=== PATIENT | male | born 1980 | race American Indian/Alaskan Native ===

== ENCOUNTER 2020-07-14 01:25 | Emergency (ER) | payer MEDICAID ==
[2020-07-14 01:58] LABS: Basophils % (Auto) 0.7 % (0.0-1.8); Eosinophils % (Auto) 0.6 % (0.0-4.3); Hematocrit 38.9 % (35.5-45.6); Hemoglobin 13.3 gm/dl (11.8-15.2); Lymphocytes # (Auto) 2.2 K/mm3 (1.2-5.4); Lymphocytes % (Auto) 32.7 % (13.4-35.0); Mean Corpuscular HGB Conc 34 % (32-34); Mean Corpuscular Volume 87 fl (84-94); Monocytes # (Auto) 0.4 K/mm3 (0.0-0.8); Monocytes % (Auto) 5.5 % (0.0-7.3); Platelet Count 146 K/mm3 (140-440); Red Blood Count 4.47 M/mm3 (3.65-5.03)
[2020-07-14 02:10] LABS: BUN/Creatinine Ratio 18; Blood Urea Nitrogen 16 mg/dL (9-20); Calcium 9.4 mg/dL (8.4-10.2); Hemolysis Index 3
[2020-07-14 02:15] LABS: Bacteria,Urine 1+ /HPF (Negative); Bilirubin,Urine NEG (Negative); Blood,Urine NEG (Negative); Color,Urine Amber (Yellow); Mucus,Urine 3+ /HPF
--- NOTE | 2020-07-14 02:18 | Emergency Department Report ---
ED General Adult HPI - General Chief complaint: Psych Stated complaint: PSYCH EVAL PUI?: No Time Seen by Provider: 07/14/20 02:05 Source: patient, EMS, RN notes reviewed Mode of arrival: Ambulatory Limitations: Other (Bizarre behavior and affect, not forthcoming) - History of Present Illness Initial comments: The patient was evaluated in the emergency department for symptoms described in the history of present illness. He/she was evaluated in the context of the global COVID-19 pandemic, which necessitated consideration that the patient might be at risk for infection with the virus that causes COVID-19. Institutional protocols and algorithms that pertain to the evaluation of patients at risk for COVID-19 are in a state of rapid change based on information released by regulatory bodies including the CDC and federal and state organizations. These policies and algorithms were followed during the patient's care in the emergency department. Please note that these policies, procedures and recommendations changed on a rapid basis. The patient is a 39-year-old gentleman, who is not known to myself previously, who was brought to the hospital today with request for psychiatric evaluation. The patient speaks very softly, and is very withdrawn. He indicated that he would like a psychiatric evaluation. He indicates he is not having physical pain. He is hesitant when asked about questions regarding homicidality and suicidality, but ultimately reports that he is not homicidal suicidal. He denies urinary symptoms, testicular pain, as well as Covid symptomatology. He is not sure what medications he takes, if any. Apparently, he was at a gas station, and police/911 were activated for unclear reasons. Patient is not accompanied by friends or family at this time for collateral information. The patient himself is disorganized, and has difficulty describing the qualitative nature of his symptoms, exacerbating factors, relieving factors, or aggravating factors. He is also asking to eat. -: This evening Quality: other Consistency: other Improves with: other Worsens with: other Associated Symptoms: other - Related Data Home Medications Medication Instructions Recorded Confirmed Last Taken No Known Home Medications [No 07/20/13 07/20/13 Unknown Reported Home Medications] Allergies Allergy/AdvReac Type Severity Reaction Status Date / Time No Known Allergies Allergy Unverified 07/20/13 10:57 ED Review of Systems ROS: Stated complaint: PSYCH EVAL Other details as noted in HPI Constitutional: denies: fever Cardiovascular: denies: chest pain Gastrointestinal: denies: abdominal pain Genitourinary: denies: urgency, dysuria, testicular pain Musculoskeletal: denies: back pain Neurological: denies: weakness Psychiatric: as per HPI ED Past Medical Hx - Past Medical History Previous Medical History?: Yes Hx Hypertension: Yes Hx Psychiatric Treatment: Yes - Surgical History Additional Surgical History: UTO - Social History Smoking Status: Unknown if ever smoked - Medications Home Medications: Home Medications Medication Instructions Recorded Confirmed Last Taken Type No Known Home Medications [No 07/20/13 07/20/13 Unknown History Reported Home Medications] ED Physical Exam - General Limitations: Other (Patient is a poor historian.) General appearance: in no apparent distress - Head Head exam: Present: atraumatic, normocephalic - Eye Eye exam: Present: normal appearance, EOMI. Absent: nystagmus - ENT ENT exam: Present: normal exam, normal orophraynx, mucous membranes moist, norm al external ear exam - Neck Neck exam: Present: normal inspection, full ROM. Absent: tenderness, meningismus - Respiratory Respiratory exam: Present: normal lung sounds bilaterally. Absent: respiratory distress, wheezes, rales, rhonchi, stridor, decreased breath sounds - Cardiovascular Cardiovascular Exam: Present: normal rhythm, bradycardia, normal heart sounds. Absent: tachycardia, irregular rhythm, systolic murmur, diastolic murmur, rubs, gallop - GI/Abdominal GI/Abdominal exam: Present: soft. Absent: distended, tenderness, guarding, rebound, rigid, pulsatile mass - Rectal Rectal exam: Present: deferred - Extremities Exam Extremities exam: Present: normal inspection, full ROM, other (2+ pulses noted in the bilateral upper and lower extremities. There is no palpable cord. negative Homans sign. Muscular compartments are soft. The pelvis is stable.). Absent: pedal edema, calf tenderness - Back Exam Back exam: Present: normal inspection, full ROM. Absent: tenderness, CVA tenderness (R), CVA tenderness (L), paraspinal tenderness, vertebral tenderness - Neurological Exam Neurological exam: Present: alert, normal gait, other (No facial droop. Tongue midline. Extraocular movements intact bilaterally. Facial sensation intact to light touch in V1, V2, V3 distribution bilaterally. 5 and a 5 strength in 4 extremities. Sensation intact to light touch in 4 extremities.). Absent: motor sensory deficit - Psychiatric Psychiatric exam: Present: flat affect - Skin Skin exam: Present: warm, dry, intact, normal color. Absent: rash ED Course Vital Signs 07/14/20 01:45 Temperature 97.9 F Pulse Rate 59 L Respiratory 18 Rate Blood Pressure 110/50 [Left] O2 Sat by Pulse 100 Oximetry ED Medical Decision Making - Lab Data Result diagrams: 07/14/20 01:35 07/14/20 01:35 Vital Signs 07/14/20 01:45 Temperature 97.9 F Pulse Rate 59 L Respiratory 18 Rate Blood Pressure 110/50 [Left] O2 Sat by Pulse 100 Oximetry Lab Results 07/14/20 07/14/20 07/14/20 Range/Units 01:35 01:35 01:35 WBC (4.5-11.0) K/mm3 RBC (3.65-5.03) M/mm3 Hgb (11.8-15.2) gm/dl Hct (35.5-45.6) % MCV (84-94) fl MCH (28-32) pg MCHC (32-34) % RDW (13.2-15.2) % Plt Count (140-440) K/mm3 Lymph % (Auto) (13.4-35.0) % [place] % (Auto) (0.0-7.3) % Eos % (Auto) (0.0-4.3) % Baso % (Auto) (0.0-1.8) % Lymph # (Auto) (1.2-5.4) K/mm3 [place] # (Auto) (0.0-0.8) K/mm3 Eos # (Auto) (0.0-0.4) K/mm3 Baso # (Auto) (0.0-0.1) K/mm3 Seg Neutrophils % (40.0-70.0) % Seg Neutrophils # (1.8-7.7) K/mm3 Sodium 141 (137-145) mmol/L Potassium 3.9 (3.6-5.0) mmol/L Chloride 103.4 (98-107) mmol/L Carbon Dioxide 29 (22-30) mmol/L Anion Gap 13 mmol/L BUN 16 (9-20) mg/dL Creatinine 0.9 (0.8-1.3) mg/dL Estimated GFR > 60 ml/min BUN/Creatinine Ratio 18 % Glucose 102 H (75-100) mg/dL Calcium 9.4 (8.4-10.2) mg/dL Magnesium (1.7-2.3) mg/dL Total Creatine Kinase (55-170) units/L Urine Color (Yellow) Urine Turbidity (Clear) Urine pH (5.0-7.0) Ur Specific [place] (1.003-1.030) Urine Protein (Negative) mg/dL Urine Glucose (UA) (Negative) mg/dL Urine Ketones (Negative) mg/dL Urine Blood (Negative) Urine Nitrite (Negative) Urine Bilirubin (Negative) Urine Urobilinogen (<2.0) mg/dL Ur Leukocyte Esterase (Negative) Urine WBC (Auto) (0.0-6.0) /HPF Urine RBC (Auto) (0.0-6.0) /HPF U Epithel Cells (Auto) (0-13.0) /HPF Urine Bacteria (Auto) (Negative) /HPF Urine Mucus /HPF Salicylates < 0.3 L (2.8-20.0) mg/dL Urine Opiates Screen Urine Methadone Screen Acetaminophen 5.0 L (10.0-30.0) ug/mL Ur Barbiturates Screen Ur Phencyclidine Scrn Ur Amphetamines Screen U Benzodiazepines Scrn Urine Cocaine Screen U Marijuana (THC) Screen Drugs of Abuse Note Plasma/Serum Alcohol (0-0.07) % 07/14/20 07/14/20 07/14/20 Range/Units 01:35 01:35 01:58 WBC 6.8 (4.5-11.0) K/mm3 RBC 4.47 (3.65-5.03) M/mm3 Hgb 13.3 (11.8-15.2) gm/dl Hct 38.9 (35.5-45.6) % MCV 87 (84-94) fl MCH 30 (28-32) pg MCHC 34 (32-34) % RDW 13.0 L (13.2-15.2) % Plt Count 146 (140-440) K/mm3 Lymph % (Auto) 32.7 (13.4-35.0) % [place] % (Auto) 5.5 (0.0-7.3) % Eos % (Auto) 0.6 (0.0-4.3) % Baso % (Auto) 0.7 (0.0-1.8) % Lymph # (Auto) 2.2 (1.2-5.4) K/mm3 [place] # (Auto) 0.4 (0.0-0.8) K/mm3 Eos # (Auto) 0.0 (0.0-0.4) K/mm3 Baso # (Auto) 0.0 (0.0-0.1) K/mm3 Seg Neutrophils % 60.5 (40.0-70.0) % Seg Neutrophils # 4.1 (1.8-7.7) K/mm3 Sodium (137-145) mmol/L Potassium (3.6-5.0) mmol/L Chloride (98-107) mmol/L Carbon Dioxide (22-30) mmol/L Anion Gap mmol/L BUN (9-20) mg/dL Creatinine (0.8-1.3) mg/dL Estimated GFR ml/min BUN/Creatinine Ratio % Glucose (75-100) mg/dL Calcium (8.4-10.2) mg/dL Magnesium (1.7-2.3) mg/dL Total Creatine Kinase (55-170) units/L Urine Color [place] (Yellow) Urine Turbidity Slightly-cloudy (Clear) Urine pH 5.0 (5.0-7.0) Ur Specific [place] 1.023 (1.003-1.030) Urine Protein 30 mg/dl (Negative) mg/dL Urine Glucose (UA) Neg (Negative) mg/dL Urine Ketones Neg (Negative) mg/dL Urine Blood Neg (Negative) Urine Nitrite Neg (Negative) Urine Bilirubin Neg (Negative) Urine Urobilinogen 4.0 (<2.0) mg/dL Ur Leukocyte Esterase Sm (Negative) Urine WBC (Auto) 30.0 H (0.0-6.0) /HPF Urine RBC (Auto) 6.0 (0.0-6.0) /HPF U Epithel Cells (Auto) 2.0 (0-13.0) /HPF Urine Bacteria (Auto) 1+ (Negative) /HPF Urine Mucus 3+ /HPF Salicylates (2.8-20.0) mg/dL Urine Opiates Screen Urine Methadone Screen Acetaminophen (10.0-30.0) ug/mL Ur Barbiturates Screen Ur Phencyclidine Scrn Ur Amphetamines Screen U Benzodiazepines Scrn Urine Cocaine Screen U Marijuana (THC) Screen Drugs of Abuse Note Plasma/Serum Alcohol < 0.01 (0-0.07) % 07/14/20 07/14/20 Range/Units 01:58 02:17 WBC (4.5-11.0) K/mm3 RBC (3.65-5.03) M/mm3 Hgb (11.8-15.2) gm/dl Hct (35.5-45.6) % MCV (84-94) fl MCH (28-32) pg MCHC (32-34) % RDW (13.2-15.2) % Plt Count (140-440) K/mm3 Lymph % (Auto) (13.4-35.0) % [place] % (Auto) (0.0-7.3) % Eos % (Auto) (0.0-4.3) % Baso % (Auto) (0.0-1.8) % Lymph # (Auto) (1.2-5.4) K/mm3 [place] # (Auto) (0.0-0.8) K/mm3 Eos # (Auto) (0.0-0.4) K/mm3 Baso # (Auto) (0.0-0.1) K/mm3 Seg Neutrophils % (40.0-70.0) % Seg Neutrophils # (1.8-7.7) K/mm3 Sodium (137-145) mmol/L Potassium (3.6-5.0) mmol/L Chloride (98-107) mmol/L Carbon Dioxide (22-30) mmol/L Anion Gap mmol/L BUN (9-20) mg/dL Creatinine (0.8-1.3) mg/dL Estimated GFR ml/min BUN/Creatinine Ratio % Glucose (75-100) mg/dL Calcium (8.4-10.2) mg/dL Magnesium 1.90 (1.7-2.3) mg/dL Total Creatine Kinase 248 H (55-170) units/L Urine Color (Yellow) Urine Turbidity (Clear) Urine pH (5.0-7.0) Ur Specific [place] (1.003-1.030) Urine Protein (Negative) mg/dL Urine Glucose (UA) (Negative) mg/dL Urine Ketones (Negative) mg/dL Urine Blood (Negative) Urine Nitrite (Negative) Urine Bilirubin (Negative) Urine Urobilinogen (<2.0) mg/dL Ur Leukocyte Esterase (Negative) Urine WBC (Auto) (0.0-6.0) /HPF Urine RBC (Auto) (0.0-6.0) /HPF U Epithel Cells (Auto) (0-13.0) /HPF Urine Bacteria (Auto) (Negative) /HPF Urine Mucus /HPF Salicylates (2.8-20.0) mg/dL Urine Opiates Screen Presumptive negative Urine Methadone Screen Presumptive negative Acetaminophen (10.0-30.0) ug/mL Ur Barbiturates Screen Presumptive negative Ur Phencyclidine Scrn Presumptive negative Ur Amphetamines Screen Presumptive negative U Benzodiazepines Scrn Presumptive negative Urine Cocaine Screen Presumptive negative U Marijuana (THC) Screen Presumptive negative Drugs of Abuse Note Disclamer Plasma/Serum Alcohol (0-0.07) % - Medical Decision Making Differential diagnosis, including but not limited to: Psychosis, disorganized behavior, encounter for behavioral health screening examination, medical screening examination Assessment and plan: 39-year-old gentleman, who was afebrile, with reassuring vital signs, with an unremarkable physical examination, who presents to the ER with a primary request for psychiatric evaluation. He is not violent, combative, homicidal or suicidal, but he is very soft-spoken, withdrawn, and not forthcoming. He does appear to be somewhat disorganized. Hold status ordered is placed, screening laboratory studies unremarkable, urinalysis reviewed and appreciated, patient states no urinary symptoms, symptoms, or recent sexual activity. Given young age, he will be covered empirically with ceftriaxone and doxycycline. Covid screen ordered in anticipation of possible psychiatric placement. At this point in time, patient does not appear to have an immediate medical contraindication to psychiatric consultation, placement, and evaluation. However, if the psychiatric team recommends that the patient would not benefit from 1013 hold or involuntary confinement/acute psychiatric hospitalization as an inpatient, from medical suitability standpoint, the patient is medically suitable for discharge with outpatient follow-up. Final disposition as per psychiatric recommendations. Critical care attestation.: If time is entered above; I have spent that time in minutes in the direct care of this critically ill patient, excluding procedure time. ED Disposition Clinical Impression: Medical clearance for psychiatric admission, Bacteriuria with pyuria, Encounter for behavioral health screening Disposition: [id number]/[id number] PSY HOSP/PSY UNIT Is pt being admited?: No Does the pt Need Aspirin: No Condition: Good
[2020-07-14 02:19] LABS: Amphetamine Screen,Urine PRESUMPTIVE NEGATIVE; Benzodiazepines Screen,Urine PRESUMPTIVE NEGATIVE; Cannabinoid Screen,Urine PRESUMPTIVE NEGATIVE; Cocaine Screen,Urine PRESUMPTIVE NEGATIVE; Methadone Screen,Urine PRESUMPTIVE NEGATIVE; Opiate Screen,Urine PRESUMPTIVE NEGATIVE
[2020-07-14] MEDS ORDERED: diphenhydrAMINE 25 MG CAP PO PRN (03:07)
[2020-07-14] MEDS ORDERED: LIDOCAINE-MPF (1%) 10 MG/1 ML VIAL 5 ML INFILTRATI ONE (03:07)
[2020-07-14] MEDS ORDERED: LORazepam 2 MG/ML VIAL IM PRN (03:07)
[2020-07-14] MEDS ORDERED: ACETAMINOPHEN 325 MG TAB PO PRN (03:07)
[2020-07-14] MEDS: DOXYCYCLINE 100 MG CAP PO SCH ×3 (04:03→22:20)
--- NOTE | 2020-07-14 09:37 | Consultation ---
History of Present Illness - Reason for Consult Consult date: 07/14/20 Reason for consult: psychosis - History of Present Psychiatric Illness Per ED Note: The patient is a 39-year-old gentleman, who is not known to myself previously, who was brought to the hospital today with request for psychiatric evaluation. The patient speaks very softly, and is very withdrawn. He indicated that he would like a psychiatric evaluation. He indicates he is not having physical pain. He is hesitant when asked about questions regarding homicidality and suicidality, but ultimately reports that he is not homicidal suicidal. He denies urinary symptoms, testicular pain, as well as Covid symptomatology. He is not sure what medications he takes, if any. Apparently, he was at a gas station, and police/911 were activated for unclear reasons. Patient is not accompanied by friends or family at this time for collateral information. The patient himself is disorganized, and has difficulty describing the qualitative nature of his symptoms, exacerbating factors, relieving factors, or aggravating factors. He is also asking to eat. 39y/o Juan Alberto Tillman was seen today, he is soft spoken, mumbling, and difficulty to follow. The patient had to be asked his name several times, in which he still could not give me his last name. His thoughts are disorganized. He does not answer any question directly. He only mumbles and rambles. PAST PSYCHIATRIC HISTORY Unable to obtain PAST MEDICAL HISTORY: None reported Family Psychiatric History: None reported or documented SOCIAL HISTORY Unable to obtain REVIEW OF SYSTEMS Unable to obtain MENTAL STATUS EXAMINATION General Appearance and Behavior: Age appropriate, not wearing appropriate clothes, poor eye contact Cooperation: Unengaged Psychomotor Behavior: Psychomotor normal Mood: Affect and affective range: Restricted Thought Process: illogical, impaired Thought Content: Speech: low tone, mumbling, nonsensical Suicidal Ideation: Homicidal Ideation: Hallucinations: Delusions: Insight and Judgment: Poor insight and judgment Memory: Poor Attention: Divided attention impaired Orientation: Assessment: Acute Psychosis Treatment Plan 1013 Start risperidone 0.25mg po BID Start Trazodone 50mg po qhs Sitter: Defer to priamary Medical: Per primary Disposition: Recommend acute psychiatric inpatient Will follow. Thank you Case discussed with Dr. Nayak Medications and Allergies Allergies Allergy/AdvReac Type Severity Reaction Status Date / Time No Known Allergies Allergy Unverified 07/20/13 10:57 Home Medications Medication Instructions Recorded Confirmed Last Taken Type No Known Home Medications [No 07/20/13 07/20/13 Unknown History Reported Home Medications] Active Meds: Active Medications Acetaminophen (Acetaminophen 325 Mg Tab) 650 mg PO Q6HR PRN PRN Reason: PAIN Diphenhydramine HCl (Diphenhydramine 25 Mg Cap) 50 mg PO QHS PRN PRN Reason: Insomnia Doxycycline Hyclate (Doxycycline 100 Mg Cap) 100 mg PO BID [facility]; Protocol Stop: 07/20/20 10:01 Last Admin: 07/14/20 04:03 Dose: 100 mg Documented by: Lorazepam (Lorazepam 2 Mg/Ml Vial) 2 mg IM Q4HR PRN PRN Reason: Agitation Mental Status Exam - Vital signs Last Vital Signs Temp 98.6 F 07/14/20 08:29 Pulse 65 07/14/20 08:29 Resp 20 07/14/20 08:29 BP 110/65 07/14/20 08:29 Pulse Ox 100 07/14/20 08:29 Results Result Diagrams: 07/14/20 01:35 07/14/20 01:35 Abnormal lab results 07/14/20 07/14/20 07/14/20 Range/Units 01:35 01:35 01:35 RDW (13.2-15.2) % Glucose 102 H (75-100) mg/dL Total Creatine Kinase (55-170) units/L Urine WBC (Auto) (0.0-6.0) /HPF Salicylates < 0.3 L (2.8-20.0) mg/dL Acetaminophen 5.0 L (10.0-30.0) ug/mL 07/14/20 07/14/20 07/14/20 Range/Units 01:35 01:58 02:17 RDW 13.0 L (13.2-15.2) % Glucose (75-100) mg/dL Total Creatine Kinase 248 H (55-170) units/L Urine WBC (Auto) 30.0 H (0.0-6.0) /HPF Salicylates (2.8-20.0) mg/dL Acetaminophen (10.0-30.0) ug/mL All other labs normal.
[2020-07-14] MEDS: risperiDONE 0.25 MG TAB PO SCH ×2 (09:52→22:20)
--- NOTE | 2020-07-14 21:10 | Event Note ---
Date: 07/14/20 The patient was evaluated in the emergency department for symptoms described in the history of present illness. He/she was evaluated in the context of the global COVID-19 pandemic, which necessitated consideration that the patient might be at risk for infection with the virus that causes COVID-19. Institutional protocols and algorithms that pertain to the evaluation of patients at risk for COVID-19 are in a state of rapid change based on information released by regulatory bodies including the CDC and federal and state organizations. These policies and algorithms were followed during the patient's care in the emergency department. Please note that these policies, procedures and recommendations changed on a rapid basis. Patient resting comfortably in stretcher at this time, and in no acute distress. No events reported during the day. Vital signs, psychiatric documentation reviewed and appreciated. 1013 filled out by myself, ordered, as per psychiatric recommendations. Patient remains medically suitable for psychiatric placement in consultation at this time. He does not appear to have an emergent medical condition present at this time. Vital Signs 07/14/20 07/14/20 07/14/20 01:45 08:29 19:49 Temperature 97.9 F 98.6 F Pulse Rate 59 L 65 Respiratory 18 20 18 Rate Blood Pressure 110/50 110/65 [Left] O2 Sat by Pulse 100 100 Oximetry 07/14/20 20:00 Temperature 98.5 F Pulse Rate 60 Respiratory 18 Rate Blood Pressure 97/52 [Left] O2 Sat by Pulse 100 Oximetry Lab Results 07/14/20 07/14/20 07/14/20 Range/Units 01:35 01:35 01:35 WBC (4.5-11.0) K/mm3 RBC (3.65-5.03) M/mm3 Hgb (11.8-15.2) gm/dl Hct (35.5-45.6) % MCV (84-94) fl MCH (28-32) pg MCHC (32-34) % RDW (13.2-15.2) % Plt Count (140-440) K/mm3 Lymph % (Auto) (13.4-35.0) % [place] % (Auto) (0.0-7.3) % Eos % (Auto) (0.0-4.3) % Baso % (Auto) (0.0-1.8) % Lymph # (Auto) (1.2-5.4) K/mm3 [place] # (Auto) (0.0-0.8) K/mm3 Eos # (Auto) (0.0-0.4) K/mm3 Baso # (Auto) (0.0-0.1) K/mm3 Seg Neutrophils % (40.0-70.0) % Seg Neutrophils # (1.8-7.7) K/mm3 Sodium 141 (137-145) mmol/L Potassium 3.9 (3.6-5.0) mmol/L Chloride 103.4 (98-107) mmol/L Carbon Dioxide 29 (22-30) mmol/L Anion Gap 13 mmol/L BUN 16 (9-20) mg/dL Creatinine 0.9 (0.8-1.3) mg/dL Estimated GFR > 60 ml/min BUN/Creatinine Ratio 18 % Glucose 102 H (75-100) mg/dL Calcium 9.4 (8.4-10.2) mg/dL Magnesium (1.7-2.3) mg/dL Total Creatine Kinase (55-170) units/L Urine Color (Yellow) Urine Turbidity (Clear) Urine pH (5.0-7.0) Ur Specific [place] (1.003-1.030) Urine Protein (Negative) mg/dL Urine Glucose (UA) (Negative) mg/dL Urine Ketones (Negative) mg/dL Urine Blood (Negative) Urine Nitrite (Negative) Urine Bilirubin (Negative) Urine Urobilinogen (<2.0) mg/dL Ur Leukocyte Esterase (Negative) Urine WBC (Auto) (0.0-6.0) /HPF Urine RBC (Auto) (0.0-6.0) /HPF U Epithel Cells (Auto) (0-13.0) /HPF Urine Bacteria (Auto) (Negative) /HPF Urine Mucus /HPF Salicylates < 0.3 L (2.8-20.0) mg/dL Urine Opiates Screen Urine Methadone Screen Acetaminophen 5.0 L (10.0-30.0) ug/mL Ur Barbiturates Screen Ur Phencyclidine Scrn Ur Amphetamines Screen U Benzodiazepines Scrn Urine Cocaine Screen U Marijuana (THC) Screen Drugs of Abuse Note Plasma/Serum Alcohol (0-0.07) % Coronavirus (PCR) (Negative) 07/14/20 07/14/20 07/14/20 Range/Units 01:35 01:35 01:58 WBC 6.8 (4.5-11.0) K/mm3 RBC 4.47 (3.65-5.03) M/mm3 Hgb 13.3 (11.8-15.2) gm/dl Hct 38.9 (35.5-45.6) % MCV 87 (84-94) fl MCH 30 (28-32) pg MCHC 34 (32-34) % RDW 13.0 L (13.2-15.2) % Plt Count 146 (140-440) K/mm3 Lymph % (Auto) 32.7 (13.4-35.0) % [place] % (Auto) 5.5 (0.0-7.3) % Eos % (Auto) 0.6 (0.0-4.3) % Baso % (Auto) 0.7 (0.0-1.8) % Lymph # (Auto) 2.2 (1.2-5.4) K/mm3 [place] # (Auto) 0.4 (0.0-0.8) K/mm3 Eos # (Auto) 0.0 (0.0-0.4) K/mm3 Baso # (Auto) 0.0 (0.0-0.1) K/mm3 Seg Neutrophils % 60.5 (40.0-70.0) % Seg Neutrophils # 4.1 (1.8-7.7) K/mm3 Sodium (137-145) mmol/L Potassium (3.6-5.0) mmol/L Chloride (98-107) mmol/L Carbon Dioxide (22-30) mmol/L Anion Gap mmol/L BUN (9-20) mg/dL Creatinine (0.8-1.3) mg/dL Estimated GFR ml/min BUN/Creatinine Ratio % Glucose (75-100) mg/dL Calcium (8.4-10.2) mg/dL Magnesium (1.7-2.3) mg/dL Total Creatine Kinase (55-170) units/L Urine Color Lilly (Yellow) Urine Turbidity Slightly-cloudy (Clear) Urine pH 5.0 (5.0-7.0) Ur Specific [place] 1.023 (1.003-1.030) Urine Protein 30 mg/dl (Negative) mg/dL Urine Glucose (UA) Neg (Negative) mg/dL Urine Ketones Neg (Negative) mg/dL Urine Blood Neg (Negative) Urine Nitrite Neg (Negative) Urine Bilirubin Neg (Negative) Urine Urobilinogen 4.0 (<2.0) mg/dL Ur Leukocyte Esterase Sm (Negative) Urine WBC (Auto) 30.0 H (0.0-6.0) /HPF Urine RBC (Auto) 6.0 (0.0-6.0) /HPF U Epithel Cells (Auto) 2.0 (0-13.0) /HPF Urine Bacteria (Auto) 1+ (Negative) /HPF Urine Mucus 3+ /HPF Salicylates (2.8-20.0) mg/dL Urine Opiates Screen Urine Methadone Screen Acetaminophen (10.0-30.0) ug/mL Ur Barbiturates Screen Ur Phencyclidine Scrn Ur Amphetamines Screen U Benzodiazepines Scrn Urine Cocaine Screen U Marijuana (THC) Screen Drugs of Abuse Note Plasma/Serum Alcohol < 0.01 (0-0.07) % Coronavirus (PCR) (Negative) 07/14/20 07/14/20 07/14/20 Range/Units 01:58 02:17 08:37 WBC (4.5-11.0) K/mm3 RBC (3.65-5.03) M/mm3 Hgb (11.8-15.2) gm/dl Hct (35.5-45.6) % MCV (84-94) fl MCH (28-32) pg MCHC (32-34) % RDW (13.2-15.2) % Plt Count (140-440) K/mm3 Lymph % (Auto) (13.4-35.0) % [place] % (Auto) (0.0-7.3) % Eos % (Auto) (0.0-4.3) % Baso % (Auto) (0.0-1.8) % Lymph # (Auto) (1.2-5.4) K/mm3 [place] # (Auto) (0.0-0.8) K/mm3 Eos # (Auto) (0.0-0.4) K/mm3 Baso # (Auto) (0.0-0.1) K/mm3 Seg Neutrophils % (40.0-70.0) % Seg Neutrophils # (1.8-7.7) K/mm3 Sodium (137-145) mmol/L Potassium (3.6-5.0) mmol/L Chloride (98-107) mmol/L Carbon Dioxide (22-30) mmol/L Anion Gap mmol/L BUN (9-20) mg/dL Creatinine (0.8-1.3) mg/dL Estimated GFR ml/min BUN/Creatinine Ratio % Glucose (75-100) mg/dL Calcium (8.4-10.2) mg/dL Magnesium 1.90 (1.7-2.3) mg/dL Total Creatine Kinase 248 H (55-170) units/L Urine Color (Yellow) Urine Turbidity (Clear) Urine pH (5.0-7.0) Ur Specific [place] (1.003-1.030) Urine Protein (Negative) mg/dL Urine Glucose (UA) (Negative) mg/dL Urine Ketones (Negative) mg/dL Urine Blood (Negative) Urine Nitrite (Negative) Urine Bilirubin (Negative) Urine Urobilinogen (<2.0) mg/dL Ur Leukocyte Esterase (Negative) Urine WBC (Auto) (0.0-6.0) /HPF Urine RBC (Auto) (0.0-6.0) /HPF U Epithel Cells (Auto) (0-13.0) /HPF Urine Bacteria (Auto) (Negative) /HPF Urine Mucus /HPF Salicylates (2.8-20.0) mg/dL Urine Opiates Screen Presumptive negative Urine Methadone Screen Presumptive negative Acetaminophen (10.0-30.0) ug/mL Ur Barbiturates Screen Presumptive negative Ur Phencyclidine Scrn Presumptive negative Ur Amphetamines Screen Presumptive negative U Benzodiazepines Scrn Presumptive negative Urine Cocaine Screen Presumptive negative U Marijuana (THC) Screen Presumptive negative Drugs of Abuse Note Disclamer Plasma/Serum Alcohol (0-0.07) % Coronavirus (PCR) Negative (Negative)
[2020-07-14] MEDS: traZODone 50 MG TAB PO SCH (22:20)
--- NOTE | 2020-07-15 08:28 | Progress Note ---
Subjective - Reason for Consult Consult date: 07/15/20 Reason for consult: MHE Requesting physician: TE KING - Chief Complaint Chief complaint: PSYCH HPI Patient seen today, more verbal and alert but low toned. Patient says he is here because he was at the gas station the other, was concerned about neighborhood he was in. Patient states he does not have any desire to hurt self, or kill self, and did endorses auditory hallucination while at the gas station the other but states he does not have any today. REVIEW OF SYSTEMS Constitutional: Negative for weight loss ENT: Negative for stridor Respiratory: Negative for cough or hemoptysis All other systems reviewed and are negative MENTAL STATUS EXAMINATION General Appearance and Behavior: Age appropriate, fair hygiene, wearing appropriate clothes, lying in bed, poor eye contact, cooperative irritable with questioning. Cooperation: withdrawn to self Psychomotor Behavior: unremarkable and within normal limits Mood: good Affect and affective range: Preservative Thought Process: Illogical Thought Content: within reality Speech: low volume, Regular rate and rhythm, Intellectual Functioning: Average Suicidal Ideation: Denies SI Homicidal Ideation: Denies HI Impulse Control: Impaired Insight and Judgment: Limited insight and judgment Memory: Short term memory intact Attention: Divided attention impaired Orientation: Alert, oriented, Diagnoses: Assessment and Plan - Patient Problems (1) Schizophrenia Current Visit: Yes Status: Acute Treatment Plan Though patient denies acute symptoms of SI, HI or AVH, patient baseline unknown, he appears thing, mild confusion, withdrawn to self and appears unkept. On review of prior health care records, did show a visit in 2013 and was reported "Patient with a history of schizophrenia was brought in by EMS with a complaint of bizarre behavior. Patient was talking and laughing to himself. Patient with history of schizophrenia has been off his meds for several days and possibly has been using crack cocaine per EMS" WIll adjust current medications and observe, will re-assesss tomorrow if still in facility. MEDICATIONS: Risks, benefits and alternatives of medications discussed with the patient, questions answered and consent obtained from patient. PSYCHOTHERAPY: Supportive psychotherapy provided MEDICAL: Per primary team DELIRIUM PRECAUTIONS: Please re-orient patient frequently, keep lights on during the day, and minimize benzodiazepines and opiates as these medications could worsen patient's confusion. 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 Case discussed with Dr. Nayak who agrees with current disposition LEGAL STATUS: 1013 FOLLOW-UP: Will follow Thank you for the consult. Please contact with any questions and/or concerns. Mental Status Exam - Vital signs Last Vital Signs Temp 98.0 F 07/15/20 01:00 Pulse 56 L 07/15/20 01:00 Resp 16 07/15/20 01:00 BP 105/60 07/15/20 01:00 Pulse Ox 98 07/15/20 01:00 Assessment and Plan - Patient Problems (1) Schizophrenia Current Visit: Yes Status: Acute
--- NOTE | 2020-07-15 10:07 | Event Note ---
Date: 07/15/20 EMR reviewed, vital signs reviewed. Status 1013. No issues brought to my attention. Muller antibiotics were given for UTI versus urethritis.
[2020-07-15] MEDS: HALOPERIDOL 2 MG TAB PO SCH ×2 (10:22→22:18)
[2020-07-15] MEDS: VALPROIC ACID 250 MG CAP PO SCH ×2 (10:22→22:15)
[2020-07-15] MEDS: DOXYCYCLINE 100 MG CAP PO SCH ×2 (10:22→22:19)
[2020-07-15] MEDS ORDERED: BENZTROPINE 1 MG TAB PO SCH (22:00)
[2020-07-15] MEDS: traZODone 50 MG TAB PO SCH (22:19)
--- NOTE | 2020-07-16 09:49 | Progress Note ---
Subjective - Reason for Consult Consult date: 07/16/20 Reason for consult: MHE Requesting physician: ANDREW HWANG - Chief Complaint Chief complaint: PSYCH HPI Patient seen today, more verbal, alert and oriented to facility. Patient states he feels better and improved when asked what he means pt explains in terms of functioning. Patient states that he was weak prior to coming in, endorses feeling better. Patient has been without any manic like behavior or seen laughing and talking to self since been in ED compared to documented 2014 chart. At this point, will defer to case management for social assistance, do not see n eed for further psych inpatient service. Can follow up outpt REVIEW OF SYSTEMS Constitutional: Negative for weight loss ENT: Negative for stridor Respiratory: Negative for cough or hemoptysis All other systems reviewed and are negative MENTAL STATUS EXAMINATION General Appearance and Behavior: Age appropriate, fair hygiene, wearing appropriate clothes, lying in bed, poor eye contact, cooperative irritable with questioning. Cooperation: withdrawn to self Psychomotor Behavior: unremarkable and within normal limits Mood: good Affect and affective range: Preservative Thought Process: Illogical Thought Content: within reality Speech: low volume, Regular rate and rhythm, Intellectual Functioning: Average Suicidal Ideation: Denies SI Homicidal Ideation: Denies HI Impulse Control: Impaired Insight and Judgment: Limited insight and judgment Memory: Short term memory intact Attention: Divided attention impaired Orientation: Alert, oriented, Diagnoses: Assessment and Plan - Patient Problems (1) Schizophrenia Current Visit: Yes Status: Acute Treatment Plan Though patient denies acute symptoms of SI, HI or AVH, patient baseline unknown, he appears thing, mild confusion, withdrawn to self and appears unkept. On review of prior health care records, did show a visit in 2013 and was reported "Patient with a history of schizophrenia was brought in by EMS with a complaint of bizarre behavior. Patient was talking and laughing to himself. Patient with history of schizophrenia has been off his meds for several days and possibly has been using crack cocaine per EMS" WIll adjust current medications and observe, will re-assesss tomorrow if still in facility. MEDICATIONS: Risks, benefits and alternatives of medications discussed with the patient, questions answered and consent obtained from patient. PSYCHOTHERAPY: Supportive psychotherapy provided MEDICAL: Per primary team DELIRIUM PRECAUTIONS: Please re-orient patient frequently, keep lights on during the day, and minimize benzodiazepines and opiates as these medications could worsen patient's confusion. 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 Case discussed with Dr. Nayak who agrees with current disposition LEGAL STATUS: 1013 rescind FOLLOW-UP: Will sign off Thank you for the consult. Please contact with any questions and/or concerns. Mental Status Exam - Vital signs Last Vital Signs Temp 98.2 F 07/16/20 05:46 Pulse 51 L 07/16/20 05:46 Resp 19 07/16/20 05:46 BP 91/40 07/16/20 05:46 Pulse Ox 100 07/16/20 05:46 Assessment and Plan - Patient Problems (1) Schizophrenia Current Visit: Yes Status: Acute
--- NOTE | 2020-07-16 10:18 | Event Note ---
Date: 07/16/20 39-year-old male currently waiting psychiatric placement for acute psychosis. Also being treated with doxycycline for suspected UTI. S: No acute events overnight. Patient says that he feels okay this morning denies any psychiatric or physical complaints of any kind. He does display disorganized thoughts and speech. O: Vital Signs - 24 hr 07/15/20 07/15/20 07/16/20 19:45 22:03 03:39 Temperature 98.5 F 98.1 F Pulse Rate 80 68 41 L Respiratory 16 16 Rate Blood Pressure 99/53 94/53 84/43 [Left] O2 Sat by Pulse 100 100 Oximetry 07/16/20 07/16/20 04:08 05:46 Temperature 98.2 F 98.2 F Pulse Rate 60 51 L Respiratory 19 19 Rate Blood Pressure 98/55 91/40 [Left] O2 Sat by Pulse 100 100 Oximetry According to the nurse, patient initially had blood pressures which were in the low range however the most recent blood pressure at 9 AM this morning was in the 130s systolic. GENERAL: Well developed. Well nourished. No acute distress HEENT: Normocephalic. Atratumatic. Moist mucous membranes. LUNGS: Nonlabored breathing. Equal chest rise bilaterally. Clear to auscultation bilaterally. HEART/CARDIOVASCULAR: Regular rate and rhythm. No murmurs or rubs. SKIN: Skin is warm and dry NEURO: Patient is awake, alert. No focal deficits. PSYCH: Disorganized speech P: Continue treatment with prescribed antibiotic for UTI and psychiatric treatment while awaiting placement. We will continue to monitor blood pressure closely and if there is concern for clinically significant hypotension will initiate further interventions and work-up at that time.
[2020-07-16] MEDS: HALOPERIDOL 2 MG TAB PO SCH (10:33)
[2020-07-16] MEDS: VALPROIC ACID 250 MG CAP PO SCH (10:33)
[2020-07-16] MEDS: DOXYCYCLINE 100 MG CAP PO SCH (10:33)
[2020-07-16 13:05] VITALS: BP 137/62
--- NOTE | 2020-07-16 13:15 | Event Note ---
Date: 07/16/20 Vital Signs - 24 hr 07/15/20 07/15/20 07/16/20 19:45 22:03 03:39 Temperature 98.5 F 98.1 F Pulse Rate 80 68 41 L Respiratory 16 16 Rate Blood Pressure Blood Pressure 99/53 94/53 84/43 [Left] O2 Sat by Pulse 100 100 Oximetry 07/16/20 07/16/20 07/16/20 04:08 05:46 09:18 Temperature 98.2 F 98.2 F 97.4 F L Pulse Rate 60 51 L 49 L Respiratory 19 19 18 Rate Blood Pressure 133/62 Blood Pressure 98/55 91/40 [Left] O2 Sat by Pulse 100 100 100 Oximetry 07/16/20 07/16/20 07/16/20 09:19 12:20 13:04 Temperature Pulse Rate 50 L Respiratory Rate Blood Pressure Blood Pressure 97/43 137/62 [Left] O2 Sat by Pulse 100 Oximetry Patient's blood pressure remains stable. Psychiatry no longer recommending inpatient treatment. Patient will be discharged with caregiver. Given the possibility of urinary tract infection versus cystitis will prescribe Keflex 500 mg twice daily x7 days.
== END 2020-07-16 16:09 ==
LOC: ED 01:25 → EEVIPCON 01:25 → ED 07-16 16:09
DX: Z04.6 Encounter for general psychiatric examination, requested by authority (principal); Z13.30 Encounter for screening examination for mental health and behavioral disorders, unspecified; Z20.822 Contact with and (suspected) exposure to COVID-19; R35.8 Other polyuria; R82.71 Bacteriuria; I10 Essential (primary) hypertension; Z79.899 Other long term (current) drug therapy
CPT/HCPCS: 36415; 80048; 80307; 81001; 82550; 83735; 85025; 87086; 96372; 99284; J0696; U0003; 80320; 99285; G0480